=== PATIENT | male | born 1960 | race Caucasian/White ===

== ENCOUNTER 2018-10-07 05:55 | Day surgery (SDC) | payer OTHER ==
[~2018-10-07] VITALS: Ht 180.3 cm; Wt 88.5 kg
[~2018-10-07 05:55] MED LIST: HYDROCODON-ACE1 EA10 PO; IBUPROFEN600 MG PO; LEXAPRO10 MG PO; MAPAP325 MG PO
[2018-10-07] MEDS ORDERED: MECLIZINE HCL25 MG PO (06:03)
[2018-10-07] MEDS ORDERED: ZESTRIL10 MG PO (06:04)
[2018-10-07] MEDS ORDERED: HYDROCHLOROTH12.5 M1 PO (06:04)
--- NOTE | 2018-10-07 09:16 | NUR ---
10/07/18 0915 Sheets,Valeria 0906 PT ARRIVED TO PACU ON 6L VIA MASK, PT REACTIVE TO VERBAL STIMULI. RESP EVEN AND UNLABORED, SMALL AMOUNT OF SNORING NOTED. 0913 O2 MASK REMOVED. PT DENIES NAUSEA AND PAIN.
--- NOTE | 2018-10-07 09:53 | NUR ---
0923 PT ARRIVED FROM PACU TALKING WITH STAFF. PT RATES PAIN 2/10, WHICH IS COMFORTABLE. PT C/O NAUSEA, ZOFRAN GIVEN. PT GIVEN WATER AND CRACKERS. GUARDS AT BEDSIDE, CALL LIGHT IN REACH.
--- NOTE | 2018-10-07 11:08 | NUR ---
1040 IN TO CHECK ON PT, PT UP BATHROOM WITH ASSIST FROM GUARDS. PT C/O NAUSEA AND PAIN. VITALS TAKEN, BP ELEVATED. PT REQUEST TO GET UP TO BATHROOM, GUARDS ASSIST. WHILE IN RESTROOM PT VOMITING. NAUSEA MEDICATION OFFERED, PT DECLINED. PT WOULD LIKE PAIN MEDICATION FIRST, GIVEN. ADVISED PT TO CALL IF NAUSEATED BY MEDICATION. NO MORE WATER GIVEN AT THIS TIME PT BELIEVES THAT IS WHAT MADE HIM NAUSEATED. NO FURTHER NEEDS AT THIS TIME. WILL CONTINUE TO MONITOR.
--- NOTE | 2018-10-07 11:42 | NUR ---
IN TO CHECK, PT STATES NAUSEA IS BETTER AT THIS TIME. PT STATE HE IS STILL COMPLAINING OF PAIN. WATER AND JELLO GIVEN. DISCUSSED THE NEED FOR PT TO EAT IN ORDER TO GIVE ORAL PAIN MEDICATION. PT UNDERSTANDS. WILL RETURN TO CHECK ON PT.
--- NOTE | 2018-10-07 12:01 | NUR ---
IN TO CHECK ON PT, TOLERATED JELLO WELL. PO PAIN MEDICATION GIVEN. WARM AIR APPLIED TO PT. PT C/O FEELING THE URGE TO URINATE, DISCUSSED THAT THIS A NORMAL SIDE EFFECT OF THE PROCEDURE. VITALS STABLE, BP REMAINS HIGH. WILL MONITOR. NO FURTHER NEEDS AT THIS TIME. GUARDS AT BEDSIDE.
--- NOTE | 2018-10-07 12:29 | OR ---
[facility] [address] [place], [place] [address] Signed DATE OF OPERATION: 10/07/2018 SURGEON: Poppy King MD PREOPERATIVE DIAGNOSES: 1. Microhematuria. 2. Intermittent left flank discomfort. 3. Multiple left renal calculi, with a total stone burden of around 1.5 cm. POSTOPERATIVE DIAGNOSES: 1. Microhematuria. 2. Intermittent left flank discomfort. 3. Multiple left renal calculi, with a total stone burden of around 1.5 cm. NAMES OF PROCEDURES: 1. Diagnostic cystoscopy with left retrograde pyelogram. 2. Left flexible ureteroscopy with laser lithotripsy and basket extraction of stones. 3. Left ureteral stent insertion. ANESTHESIA: General. ESTIMATED BLOOD LOSS: Minimal. COMPLICATIONS: None. SPECIMENS: Multiple left renal calculi sent to the lab for stone analysis. DRAINS: A 6 x 26 cm double-J ureteral stent inserted to the left ureter. INDICATIONS FOR PROCEDURE: Mr. Koch is a very pleasant 58-year-old gentleman with a history of nephrolithiasis, who recently presented to my clinic to undergo evaluation of microscopic hematuria and intermittent left-sided flank pain. He had already undergone a contrasted CT scan, which revealed multiple left renal calculi, with a total stone burden of around 1.5 cm. The remainder of the CT scan was unremarkable. Given his intermittent flank discomfort, Electronically Signed By: POPPY KING MD 10/07/18 1229 PATIENT NAME: HIGINIO KOCH OPERATIVE REPORT DATE OF : 56 REPORT #: [id number] PHYSICIAN: POPPY KING MD PCP: CARY HUIZAR MD REPORT IS CONFIDENTIAL AND NOT TO BE RELEASED WITHOUT AUTHORIZATION [facility] [address], [place] [address] Signed the patient has elected to undergo elective stone extraction in the form of ureteroscopy, lithotripsy, and stent placement. OPERATIVE FINDINGS: 1. On cystoscopy, there was no evidence of any suspicious masses, lesions, or stones. Bilateral ureteral orifices are in their normal anatomic location and effluxing clear urine. 2. The bladder morphology is completely normal, and there is no evidence of any bladder outlet obstruction or lateral lobe hypertrophy of the prostatic urethra. 3. Left retrograde pyelogram revealed a widely patent left ureter with no filling defects. There is a very large left renal calculus seen on the retrograde pyelogram noted in the upper pole of the left kidney. This is consistent with the collection of stones that is quite possibly the source of the patient's intermittent left-sided flank discomfort. There were no other filling defects or any abnormality seen in the remainder of the left retrograde pyelogram. 4. Flexible ureteroscopy reveals a group of stones in the upper pole of the left kidney, consistent with a total stone burden of around 1.5 cm. These stones were fragmented with a moderate amount of difficulty with a 400 micron fiber at 8 hertz and 1 joule. There was a significant amount of stone dust associated with the fragmentation, however, there was no significant bleeding during this portion of the procedure. 5. Approximately 2/3 of the stone burden was successfully extracted using a Zero Tip basket. Approximately 1-1/2 hours into the procedure, the visualization prevented me from extracting the entire stone burden from the left kidney. 6. A 6 x 26 cm double-J ureteral stent was inserted into the left collecting system at the end of the procedure without difficulty. DESCRIPTION OF PROCEDURE: After informed consent was obtained, the patient was taken back to the operating room. He was transferred from the [facility] to the operating room table, where general anesthesia was induced. He was placed in the dorsal lithotomy position and his genitalia were prepped and draped in a standard sterile fashion. Using a 30-degree lens on a 22-1/2-Macedonian introducer, rigid cystoscope was inserted through the urethra into his bladder under direct visualization. Panendoscopic views of the bladder were then obtained. Please see above findings. Attention was turned to the left ureteral orifice. A cone-tipped catheter was advanced into the left distal ureter and a left retrograde pyelogram was performed. Please see the findings. The cone-tipped catheter was removed and a 0.035 Sensor wire was inserted through the scope and into the left collecting system. Placement of the wire was confirmed on fluoroscopy. Over the wire, an 11/13 ureteral access sheath was passed into the left ureter under fluoroscopic guidance without difficulty. Contrast was injected into the sheath to confirm placement. The large stone was seen as a filling defect in the upper pole of the left kidney on fluoroscopy. Through the sheath, I passed the flexible ureteroscope and a Electronically Signed By: POPPY KING MD 10/07/18 1229 PATIENT NAME: HIGINIO KOCH OPERATIVE REPORT DATE OF : 56 REPORT #: [id number] PHYSICIAN: POPPY KING MD PCP: CARY HUIZAR MD REPORT IS CONFIDENTIAL AND NOT TO BE RELEASED WITHOUT AUTHORIZATION [address] [address] Signed diagnostic left nephroureteroscopy was performed. Please see above findings. Once the stone was visualized, it was then fragmented using a 400 micron fiber with some difficulty due to the extent of stone dust, which did limit a good deal of my visualization. The stone fragmented with some resistance. I then used a Zero Tip basket to extract as many stones as possible that I could visualize in the upper pole of the left kidney. Approximately 2/3 of the stone burden was successfully extracted. These stones will be sent to the lab for stone analysis. With limited visualization, I chose to proceed with stenting today and bring the patient back for a staged procedure to complete the his stone extraction. I reinserted a Sensor wire through the ureteroscope and confirmed placement of the wire on fluoroscopy. Over the wire, I passed a 6 x 26 cm contour double-J ureteral stent into the left collecting system under direct visualization. The stent passed easily. Once the wire was pulled, I was able to appreciate an adequate coil within the left renal pelvis along with an adequate distal coil within the bladder. The patient's bladder was then drained and cystoscope was removed. The procedure was then terminated. The patient tolerated the procedure well without any complication. He will now be transferred to the postanesthesia care unit in stable condition. DISPOSITION: I discussed the details of today's procedure with the patient and answered all of his questions. He will be discharged back to the [facility] today in stable condition. He was sent home with Percocet 5/325 q.4 to 6 hours p.r.n. pain, dispense #30, along with Augmentin 875 mg p.o. b.i.d. for a total of 7 days. The patient will need to be placed back on the operating room schedule to undergo a second-stage left ureteroscopy with extraction of the remaining stone burden in the left kidney. This will happen in approximately 3 weeks and will be scheduled with the [facility]. Poppy King MD AR/MODL /[id number] Copies: Electronically Signed By: POPPY KING MD 10/07/18 1229 PATIENT NAME: HIGINIO KOCH OPERATIVE REPORT DATE OF : 56 REPORT #: [id number] PHYSICIAN: POPPY KING MD PCP: CARY HUIZAR MD REPORT IS CONFIDENTIAL AND NOT TO BE RELEASED WITHOUT AUTHORIZATION [address] [address] Signed ~ Electronically Signed By: POPPY KING MD 10/07/18 1229 PATIENT NAME: HIGINIO KOCH OPERATIVE REPORT DATE OF : 56 REPORT #: [id number] PHYSICIAN: POPPY KING MD PCP: CARY HUIZAR MD REPORT IS CONFIDENTIAL AND NOT TO BE RELEASED WITHOUT AUTHORIZATION
--- NOTE | 2018-10-07 13:37 | NUR ---
1315 IN TO CHECK ON PT, PT GETTING UP TO RESTROOM WITH ASSIST FROM GUARDS. PT ADVISED HE HAS MEET DISCHARGE CRITERIA, PT AGREEABLE. PT STATES HE IS STILL HAVING PAIN, 5/10 SHARP. AZO GIVEN. IV DC'D, PT DRESSED WITH HELP OF GUARDS. DC INSTRUCTIONS GIVEN. PT WHEELED OUT WITH GUARDS.
--- NOTE | 2018-10-07 14:25 | NUR ---
PT LAYING IN BED, [facility] GUARDS AT BEDSIDE. PT SPOKE VERY QUIETLY, SEEMED TO BE SOMEWHAT UNCOMFORTABLE WITH TODAY. PT REQUESTED PRAYER, WILL FOLLOW NEEDED
== END 2018-10-07 13:28 | disposition home or self-care (01) ==
LOC: DS 05:55 → OPS 05:55 → DS 06:45 → OPS 06:45
PROVIDERS: Urology
PROC: BT1FYZZ Fluoroscopy of Left Kidney, Ureter and Bladder using Other Contrast (ICD-10-PCS; 2018-10-07)
PROC: 0TC18ZZ Extirpation of Matter from Left Kidney, Via Natural or Artificial Opening Endoscopic (ICD-10-PCS; principal; 2018-10-07 06:45)
PROC: 0T778DZ Dilation of Left Ureter with Intraluminal Device, Via Natural or Artificial Opening Endoscopic (ICD-10-PCS; 2018-10-07 06:45)
DX: N20.0 Calculus of kidney (principal); R31.29 Other microscopic hematuria; K59.09 Other constipation; Z86.19 Personal history of other infectious and parasitic diseases; Z87.442 Personal history of urinary calculi; Z79.899 Other long term (current) drug therapy
CPT/HCPCS: 00918; 74450; 82365; C2617; J0696; J1170; J1885; J2250; J2405; J2550; J2704; J2765; J3010; J7120; Q9967

== ENCOUNTER 2018-11-04 05:40 | Day surgery (SDC) | payer OTHER ==
[~2018-11-04] VITALS: Ht 180.3 cm; Wt 88.5 kg
[~2018-11-04 05:40] MED LIST changes: +HYDROCHLOROTH12.5 M1 PO; +MECLIZINE HCL25 MG PO; +ZESTRIL10 MG PO
--- NOTE | 2018-11-04 09:06 | NUR ---
11/04/18 0905 Zeinab,Valeria 0849 PT ARRIVED TO PACU ON 6L VIA MASK, RESP EVEN AND UNLABORED. PT REACTIVE TO TACTILE STIMULI. 0856 PT O2 MASK REMOVED, PT DENIES PAIN. PT REPORTS SMALL AMOUNT OF NAUSEA. 0902 NAUSEA MEDICATION GIVEN, RN ENCOURGES PT TO BREATH, PERIOD OF APNEA NOTED WHIEL ASLEEP, PT WAKES TO VERBAL STIMULI AND DEEP BREATHES. PT REPORTS "I AM FEELING A LITTLE BETER."
--- NOTE | 2018-11-04 09:22 | NUR ---
ICED WATER GIVEN. OFFICERS @ BS. PATIENT REPORTS FEELING "A LITTLE BIT NAUSEATED". EDUCATION COMPLETE WITH REGARD TO DRINKING WATER. PATIENT TAKING DEEP BREATHS AND REPORTS "THAT FEELS SO MUCH BETTER". PATIENT DENIES PAIN. PATIENT REPORTS "I FEEL SO CONFUSED".
[2018-11-04] MEDS ORDERED: PERCOCET 5-3251 EACH PO (10:02)
[2018-11-04] MEDS ORDERED: MACROBID 100 M100 MG PO (10:02)
--- NOTE | 2018-11-04 10:14 | NUR ---
JELLO AND MORE ICED WATER GIVEN. PATIENT EATS THE JELLO AND TOLERATES THAT WELL. DC INSTRUCTIONS GIVEN AND PATIENT'S QUESTIONS ARE ANSWERED.
--- NOTE | 2018-11-04 11:24 | NUR ---
LE 1015: PATIENT UP TO THE BATHROOM WITH OFFICER ASSIST. OFFICERS REPORT SUCCESSFUL VOID. DC INSTRUCTIONS ARE GIVEN AND PATIENT'S QUESTIONS ARE ANSWERED. PATIENT GETTING DRESSED WITH OFFICER ASSIST. LE 1055: REPORT CALLED TO [facility] BEATRIZ RESENDIZ AND HER QUESTIONS ARE ANSWERED.
--- NOTE | 2018-11-04 12:23 | OR ---
[facility] [address] [facility] [place], [place] [address] Signed DATE OF OPERATION: 11/04/2018 SURGEON: Poppy King MD PREOPERATIVE DIAGNOSES: 1. Left renal calculi. 2. Status post ureteroscopy with laser lithotripsy, basket extraction of 15 mm stone burden, with stent placement. 3. Residual stone fragments present after recent left ureteroscopy. POSTOPERATIVE DIAGNOSES: 1. Left renal calculi. 2. Status post ureteroscopy with laser lithotripsy, basket extraction of 15 mm stone burden, with stent placement. 3. Residual stone fragments present after recent left ureteroscopy. NAMES OF PROCEDURES: 1. Cystoscopy with left retrograde pyelogram. 2. Left flexible nephroscopy with laser lithotripsy, basket extraction of stones. 3. Left ureteral stent exchange. ANESTHESIA: General. ESTIMATED BLOOD LOSS: Minimal. COMPLICATIONS: None. SPECIMENS: Fragments of left ureteral calculi sent to the lab for stone analysis. DRAINS: A 6 x 26 cm contour double-J ureteral stent inserted in the left ureter. INDICATIONS FOR PROCEDURE: Mr. Koch is a very pleasant 58-year-old gentleman who presented to my clinic a month or so ago with an approximately 15 mm stone burden present in the left kidney. He was experiencing intermittent left flank pain. He recently underwent his 1st ureteroscopy Electronically Signed By: POPPY KING MD 11/04/18 1223 PATIENT NAME: HIGINIO KOCH OPERATIVE REPORT DATE OF : 56 REPORT #: [id number] PHYSICIAN: POPPY KING MD PCP: CARY HUIZAR MD REPORT IS CONFIDENTIAL AND NOT TO BE RELEASED WITHOUT AUTHORIZATION [facility] [address] [place], [place] [address] Signed with laser lithotripsy stone extraction without complication. I chose to stage the procedure due to lack of visualization from numerous amounts of stone dust and bleeding during the 1st ureteroscopy. He presents today to undergo ureteroscopic extraction of the remaining fragments of left renal calculi. OPERATIVE FINDINGS: 1. On cystoscopy, there was no evidence of any suspicious masses, lesions, or stones. He has an indwelling left ureteral stent, which was removed fully intact using a stent grasper. 2. Left retrograde pyelogram revealed the presence of filling defects within the lower pole of the left kidney, consistent with residual fragments of left renal calculi. 3. Flexible nephroscopy was performed and laser lithotripsy was used to fragment one larger piece, which was approximately 7 mm in size. The stone was fragmented without difficulty using the holmium laser. The Zero Tip basket was then used to remove these stone fragments along with the other residual fragments within the left lower pole. 4. A 6 x 26 cm double-J ureteral stent was exchanged in the left collecting system without difficulty. DESCRIPTION OF PROCEDURE: After informed consent was obtained, the patient was taken back to the operating room. He was transferred from the [facility] to the operating room table, where general anesthesia was induced. He was placed in the dorsal lithotomy position and his genitalia were prepped and draped in the standard sterile fashion. Using a 30-degree lens on a 22-1/2-Kazakh introducer, rigid cystoscope was inserted through his urethra and into his bladder under direct visualization. Panendoscopic views of the bladder were then obtained. Please see above findings. Graspers were used to remove the indwelling ureteral stent without difficulty. I then passed a 0.035 Sensor wire into the left collecting system and confirmed placement of the wire via fluoroscopy. Over the wire, I passed a 13/15 ureteral access sheath into the left collecting system under fluoroscopic guidance. Contrast was shot through the sheath and into the left renal pelvis to confirm sheath placement and to evaluate the residual stone burden. Please see above findings. The inner cannula was removed from the sheath and the flexible ureteroscope was passed into the left renal pelvis. A flexible diagnostic nephroscopy was then performed. I was able to extract one of the smaller stones using a Zero Tip basket initially. However, there was a larger stone approximately 6-7 mm in size. This was fragmented using the holmium laser using a 270 micron fiber. The stone fragmented easily. The fragments were then collected using a Zero Tip basket. Overall 99% of the stone burden was successfully extracted. Once all the stones were extracted, the ureteroscope was then removed and a Sensor wire was inserted through the sheath and into the left renal pelvis. The ureteral access sheath was then removed fully intact. Over the wire, a 6 x 26 cm double-J ureteral stent was inserted into the left ureter under direct vision. Fluoroscopy confirmed the axis of adequate proximal coil within the left Electronically Signed By: POPPY KING MD 11/04/18 1223 PATIENT NAME: HIGINIO KOCH OPERATIVE REPORT DATE OF : 56 REPORT #: [id number] PHYSICIAN: POPPY KING MD PCP: CARY HUIZAR MD REPORT IS CONFIDENTIAL AND NOT TO BE RELEASED WITHOUT AUTHORIZATION [address] [address] Signed renal pelvis with an adequate distal coil within the bladder. The patient's bladder was then drained and the procedure was terminated. The patient tolerated the procedure well without any complication. He will now be transferred to the postanesthesia care unit in stable condition. DISPOSITION: The patient will be discharged to home later today once he awakes from general anesthetic. He was given prescriptions for Macrobid 100 mg p.o. b.i.d. for a total of 10 days, along with Percocet 5/325, dispense #20 as needed for pain. He will be scheduled to return to clinic within the next week or so to undergo cystoscopy with left ureteral stent extraction. At that time, we will discuss the results of the stone analysis. MD RICARDA Quiroz/JOSEPH /[id number] Copies: ~ Electronically Signed By: POPPY KING MD 11/04/18 1223 PATIENT NAME: HIGINIO KOCH OPERATIVE REPORT DATE OF : 56 REPORT #: [id number] PHYSICIAN: POPPY KING MD PCP: CARY HUIZAR MD REPORT IS CONFIDENTIAL AND NOT TO BE RELEASED WITHOUT AUTHORIZATION
== END 2018-11-04 10:25 | disposition home or self-care (01) ==
LOC: OPS 05:40 → DS 05:40 → OPS 06:45
PROVIDERS: Urology
PROC: BT1FYZZ Fluoroscopy of Left Kidney, Ureter and Bladder using Other Contrast (ICD-10-PCS; 2018-11-04)
PROC: 0TP98DZ Removal of Intraluminal Device from Ureter, Via Natural or Artificial Opening Endoscopic (ICD-10-PCS; 2018-11-04)
PROC: 0TC48ZZ Extirpation of Matter from Left Kidney Pelvis, Via Natural or Artificial Opening Endoscopic (ICD-10-PCS; principal; 2018-11-04 06:45)
PROC: 0T778DZ Dilation of Left Ureter with Intraluminal Device, Via Natural or Artificial Opening Endoscopic (ICD-10-PCS; 2018-11-04 06:45)
DX: N20.0 Calculus of kidney (principal); Z79.899 Other long term (current) drug therapy
CPT/HCPCS: 00918; 74420; 82365; C2617; J0696; J1885; J2250; J2405; J2704; J2765; J3010; J7120; Q9967

== ENCOUNTER 2018-11-17 16:07 | Emergency (ER) | payer OTHER ==
[~2018-11-17] VITALS: Ht 180.3 cm; Wt 88.5 kg
[~2018-11-17 16:07] MED LIST changes: +MACROBID 100 M100 MG PO; +PERCOCET 5-3251 EACH PO
== END 2018-11-17 17:45 | disposition home or self-care (01) ==
LOC: ED 16:07
PROC: 4A0D7LZ Measurement of Urinary Volume, Via Natural or Artificial Opening (ICD-10-PCS; principal; 2018-11-17)
DX: R31.9 Hematuria, unspecified (principal); Z88.5 Allergy status to narcotic agent; Z79.899 Other long term (current) drug therapy; Z96.0 Presence of urogenital implants
CPT/HCPCS: 51798; 81001; 87088; 99283-25

== ENCOUNTER 2021-10-19 08:21 | Inpatient (IN) | payer OTHER ==
[~2021-10-19] VITALS: Ht 180.3 cm; Wt 120.3 kg
--- NOTE | 2021-10-19 14:00 | NUR ---
This RN transfers patient from ED to [facility] room 117 via stretcher. He is able to ambulate from stretcher to bathroom for BM. He c/o stomach cramps, continues to have frequent loose stools and c/o nausea. 4mg zofran administered. IVF infusing WNL. Brewer cath draining WNL, emptied of 600ml at this time. Hx and assessment complete. VSS, 100% on RA, pt denies any respiratory sx. Oriented to room, call light.
[2021-10-19] MEDS ORDERED: DULOXETINE HCL30 MG PO (14:42)
[2021-10-19] MEDS ORDERED: CETIRIZINE HCL10 MG PO (14:43)
[2021-10-19] MEDS ORDERED: VITAMIN D250 MC1 PO (14:43)
[2021-10-19] MEDS ORDERED: ATORVASTATIN CA20 MG PO (14:44)
[2021-10-19] MEDS ORDERED: DICLOFENAC SOD100 G1 TOP (14:44)
[2021-10-19] MEDS ORDERED: LEVOTHYROXINE112 MCG PO (14:45)
[2021-10-19] MEDS ORDERED: OMEPRAZOLE20 MG PO (14:46)
[2021-10-19] MEDS ORDERED: LISINOPRIL20 MG PO (14:46)
--- NOTE | 2021-10-19 14:48 | NUR ---
MED REC COMPLETED BY PHARMACY
--- NOTE | 2021-10-19 17:30 | NUR ---
Dinner taken to patient, resting in bed, c/o stomach cramping, states frequent loose stools and ambulation to BR. 2 correctional officers in room, state no needs. IVF infusing WNL.
--- NOTE | 2021-10-19 18:58 | NUR ---
PT AWAKE IN BED AND HAS QUESTIONS ABOUT HIS CARE AND GOALS FOR THE FUTURE. BEATRIZ LYN NOTIFIED. NO FURTHER NEEDS AT THIS TIME. TWO GUARDS IN THE ROOM. CALL LIGHT IN REACH.
--- NOTE | 2021-10-19 21:39 | NUR ---
on respiratory isolation. na bicarb iv infusing, eas medicate dwith tylenol 500mg earlier c/o back/bone and joing muscle aches. on 4 point iron contreras, 2 [employer] officers in room.. [place] box given
--- NOTE | 2021-10-19 23:22 | NUR ---
na bicarb rate decreaed to 75cc/hr and 30 mew of K given as per new orders. Pt coop. on room air, 4point restraints in place, 2[employer] staff in room
--- NOTE | 2021-10-20 00:56 | NUR ---
On resp isolation, [address] [facility] [address] pt on room air, no cough, no distress, wearing 4 point metal restraints as per [facility] safety. pt tolerating liquids and foods well, no emesis, no diarrhea this shift. IVF infusing w/o problems. f/c patent. turns and repositions in bed
--- NOTE | 2021-10-20 02:23 | NUR ---
awake, on room air, lungs clear, no cough. coop with assessment. IVf infusing w/o problems, moving in bed. f/c patent. no emesis, no diarrhea. tolerating fluids well, fresh fluids, pop,juice, and puding given. [address].. 2[employer] guards in place.
--- NOTE | 2021-10-20 05:54 | NUR ---
PT ON ROOM AIR, RESP ISOLATION PRECAUTIONS, NO EMESIS, NO LOOSE4 STOOLS, TOLERATING LIQUIDS AND DIET WELL. HAS HAD SEVERAL SNACKS AND LUNCH BOX. WEARING 4 POINT [employer] METAL RESTRAINTS, 2 [employer] OFFICERS IN ROOM. PT HAS BEEN COOPERATIVE. F/C NOT CHRONIC, PATENT. TRYING TO RESTART IV, WILL NOTIFY MD IF UNABLE
--- NOTE | 2021-10-20 07:06 | NUR ---
Dr Kaur notified of unable to restart iv, site, stated "try to restart IV or midline, he needs IVF
--- NOTE | 2021-10-20 07:31 | NUR ---
PT USING CALL LINE "I NEED TO SEE THE DOCTOR, I WANT TO GO BACK, I CAN NOT SLEEP OR MOVE LIKE THIS, I CANT HAVE THIS RESTRAINTS ON ALL DAY, IM TIRES, I HURT, I WOULD LIKE TO GO BACK," PT INSATRUCTED THAT MD WOULD BE NOTIFIED AND HE/CHARGE NURSE/INCOMING WOULD TALK TO HIM
--- NOTE | 2021-10-20 09:30 | NUR ---
REPORT RECEIVED FROM NIGHT RN AND PT. CARE RESUMED. PT. IS UP TO THE BATHROOM WITH SBA. NEW IV PLACED BY BEATRIZ SINGH. IV SITE WNL AND FLUSHES WELL. PT. IS ALERT AND ORIENTED TO ALL. HE DENIES PAIN, EXCEPT FOR PRESSURE WHERE BUE RESTRAINTS ARE IN PLACE. SKIN AROUND RESTRAINTS IS INTACT WELL CMS. LUNGS CLEAR THROUGHOUT. DISCUSSED POC, AND SAFETY. LEFT RESTING WITH CALL LIGHT IN REACH.
--- NOTE | 2021-10-20 10:51 | NUR ---
PT. REQUESTS CPAP TO SLEEP. R.T. REPORTS CPAP AVAILABLE. INSTEAD, PLACED ON 2L NC AND PULSE OX. O2 SAT. IS 98% WHILE RESTING. LEFT RESTING WITH CALL LIGHT IN REACH.
--- NOTE | 2021-10-20 11:00 | NUR ---
Spoke with pt. [facility] Currently using 02 at 2l on admission. Pt uses CPAP at [facility]. States several times he needs it as he can't sleep without. I was notified by staff pt was requesting to go AMA, returned and spoke with pt. He wants his CPAP. Spoke with RT and ours are all in use. Called and spoke with Tisha, cell operation supervisor at the [facility]. She states they will attempt to get his here, she does not recommend he leave AMA as they will bring him back if he has any issues at all. Updated pt and he plans on staying.
--- NOTE | 2021-10-20 14:37 | NUR ---
PT. DENIES PAIN AT THIS TIME. BUE RESTRAINTS REMOVED BY C.O. PT. IS ON CPAP. VITALS STABLE AND QUINTERO PATENT. IVF INFUSING. PT. LEFT RESTING WITH CALL LIGHT INREACH.
--- NOTE | 2021-10-20 15:08 | NUR ---
H&P and progress note faxed to December as requested.
--- NOTE | 2021-10-20 20:26 | NUR ---
pt in resp isolation. on room air, lungs clear bilat, abd soft, joaquim, had a bm between shift today. f/c patent. IVF restarted LR at 75cc/hr JESSIE iv site patent. wearing 4 point restraints as per [facility] policy, 2 [facility] guars in room. Pt had a ashower, tolerated well. In bed, hob elevated, watching tv, denies c/o abd pain, no emesis, tolerating diet and liquids well. snacks given on request. call light at hands reach. COop with assessment and vitals
--- NOTE | 2021-10-20 23:41 | NUR ---
PER PRIMARY RN REQUEST, IN ROOM TO GIVE PRN MELATONIN, SEE EMAR. UNABLE TO SCAN, VERIFIED WITH SECOND RN ASHLEY. NO FURTHER NEEDS, CALL LIGHT IN REACH, NO FURTHER NEEDS VERBALIZED. HOME CPAP MACHINE IN PLACE.
--- NOTE | 2021-10-21 02:36 | NUR ---
pt wearing his home CPAP, stated Melatonin has not been effecitve. wearing 4point reatraints, 2 [employer] [address]ars [address]. on Resp isolation
--- NOTE | 2021-10-21 05:38 | NUR ---
Pt on Respiratory Isolation, on room air, has used his home CPAP this sahift, no cough, no resp distress. no sob with exertion. Lungs clear bilat. Had a shower at change of shift. tolerated well. Received 1L IVF , completed at this time. SL JESSIE patent. Tolerating diet and liquids well. Has received several snacks, no emesis. Wearing 4 point metal restraints as per [facility] protocol. Received Melatoning per sleep, not effective as per pt. No emesis, had one bm this shift. 2 [facility] guars in room
--- NOTE | 2021-10-21 09:00 | NUR ---
REPORT RECEIVED FROM NIGHT RN AND PT. CARE RESUMED. PT. IS ALERT AND ORIENTED. RESTRAINTS IN PLACE IN ALL EXTREMITIES. +1 EDEMA IN BUE. CMS INTACT IN ALL EXTREMITIES. PT. DENIES PAIN. QUINTERO REMOVED AND INTACT. PT. TOLERATED WELL. DISCUSSED POC. LEFT RESTING WITH 2 C.O. AT BEDSIDE.
--- NOTE | 2021-10-21 13:16 | NUR ---
Faxed Dc summary and orders to Amelia at [facility]. Called and spoke with Guadalupe at [facility] and updated pt will dc today. Faxed orders and DC summary. They request pt return with N95, charge nurse notified.
--- NOTE | 2021-10-21 13:35 | NUR ---
PT. VITALS STABLE AND IV REMOVED WITH CATH INTACT BY [employer]. DISCHARGE INSTRUCTIONS AND PACKET GIVEN TO C.O. PT. LEFT WITH C.O.
== END 2021-10-21 15:15 | disposition home or self-care (01) | DRG 682 ==
LOC: ED 08:21 → MS 13:17
PROVIDERS: ADMIT Internal Medicine; ATTEND Internal Medicine
PROC: 8E0ZXY6 Isolation (ICD-10-PCS; principal; 2021-10-19)
DX: N17.9 Acute kidney failure, unspecified (principal); U07.1 COVID-19; E87.2 Acidosis; E87.1 Hypo-osmolality and hyponatremia; A08.39 Other viral enteritis; E86.0 Dehydration; I10 Essential (primary) hypertension; G47.33 Obstructive sleep apnea (adult) (pediatric); E86.1 Hypovolemia; K21.9 Gastro-esophageal reflux disease without esophagitis; E03.9 Hypothyroidism, unspecified; E78.00 Pure hypercholesterolemia, unspecified; Z98.890 Other specified postprocedural states; Z88.6 Allergy status to analgesic agent; Z79.899 Other long term (current) drug therapy
CPT/HCPCS: 80048; 80053; 81001; 82553; 82565; 82570; 84300; 84520; 85025; J1650; J2405; J7030; J7121

== ENCOUNTER 2022-02-12 15:10 | Emergency (ER) | payer OTHER ==
[~2022-02-12] VITALS: Ht 180.3 cm; Wt 120.2 kg
[~2022-02-12 15:10] MED LIST changes: +ATORVASTATIN CA20 MG PO; +CETIRIZINE HCL10 MG PO; +DICLOFENAC SOD100 G1 TOP; +DULOXETINE HCL30 MG PO; +LEVOTHYROXINE112 MCG PO; +LISINOPRIL20 MG PO; +OMEPRAZOLE20 MG PO; +VITAMIN D250 MC1 PO
[2022-02-12] MEDS ORDERED: ZESTRIL20 MG PO (16:36)
[2022-02-12] MEDS ORDERED: MECLIZINE HCL25 M1 PO (16:36)
== END 2022-02-12 19:24 | disposition home or self-care (01) ==
LOC: ED 15:10
DX: S06.0X0A Concussion without loss of consciousness, initial encounter (principal); S02.2XXA Fracture of nasal bones, initial encounter for closed fracture; Y04.8XXA Assault by other bodily force, initial encounter; K21.9 Gastro-esophageal reflux disease without esophagitis; E03.9 Hypothyroidism, unspecified; E78.00 Pure hypercholesterolemia, unspecified; I10 Essential (primary) hypertension; Z88.8 Allergy status to other drugs, medicaments and biological substances; Z79.899 Other long term (current) drug therapy
CPT/HCPCS: 70450; 70486; 72125; 99284-25